=== PATIENT | male | born 1970 | race Two or more races ===

== ENCOUNTER 2020-09-17 06:29 | Inpatient (IN) | payer MEDICAID, OTHER ==
[~2020-09-17] VITALS: Ht 170.2 cm; Wt 86.6 kg
[2020-09-17] MEDS ORDERED: MORPHINE SULFATE 4 MG/ML SYR/VIAL IV ONE ×2 (08:00→13:45)
[2020-09-17] MEDS ORDERED: ONDANSETRON HCL 4 MG/2 ML VIAL IV ONE ×2 (08:00→13:45)
[2020-09-17] MEDS ORDERED: SODIUM CHLORIDE 0.9% 1,000 ML IV ONE ×2 (08:00)
[2020-09-17 08:43] LABS: Basophils # (auto) 0.1 10 ^3/uL (0-0.2); Basophils % (auto) 0.8 % (0.0-2.0); Eosinophils # (auto) 0 10 ^3/uL (0-0.8); Eosinophils % (auto) 0.3 % (0.0-7.0); Hematocrit 44.1 % (41.0-53.0); Hemoglobin 15.2 g/dL (13.5-17.5); Mean Corpuscular Hemoglobin 31.7 pg (28.0-32.0); Mean Corpuscular Hgb Conc. 34.4 g/dL (32.0-36.0); Mean Corpuscular Volume 92.2 fL (80.0-100.0); Monocytes # (auto) 0.5 10 ^3/uL (0-1.3); Monocytes % (auto) 4.1 % (0.0-12.0); Neutrophils # (auto) 11.2 10 ^3/uL (1.6-8.6); Neutrophils % (auto) 86.8 % (37.0-80.0); Nucleated Red Blood Cells % 0.4 %; Platelet Count (auto) 299 10^3/uL (140-450); Red Blood Cells 4.79 10^6/uL (4.5-5.90); Red Cell Distribution Width 12.7 % (11.8-14.3); White Blood Cell 12.9 10^3/uL (4.4-10.8)
[2020-09-17 08:47] LABS: Calcium 8.9 mg/dL (8.5-10.1); Potassium 4.1 mmol/L (3.5-5.1)
[2020-09-17 08:50] LABS: Albumin 3.6 g/dL (3.4-5.0); BUN/Creatinine Ratio 9.6
[2020-09-17 08:52] LABS: Bilirubin, Total 1.4 mg/dL (0.2-1.0); Total Protein 7.9 g/dL (6.4-8.2)
[2020-09-17 09:08] LABS: Urine Bacteria NONE SEEN /hpf (None Seen); Urine Blood Negative /uL (Negative); Urine Mucus FEW (None Seen); Urine Specific Gravity 1.021 (1.001-1.035); Urine WBC 1 /hpf (0 - 3)
[2020-09-17] MEDS ORDERED: PIPERACILLIN-TAZOB 3.375GM 100 ML IV ONE (09:45)
[2020-09-17] MEDS ORDERED: MORPHINE SULF INJ 2 MG/ML SYRINGE 1ML IV PRN (14:00)
[2020-09-17] MEDS ORDERED: NITROGLYCERIN 0.4 MG SL TAB SL PRN (14:00)
[2020-09-17] MEDS ORDERED: ONDANSETRON HCL 4 MG/2 ML VIAL IV PRN (14:15)
[2020-09-17] MEDS: SODIUM CHLORIDE 0.9% 1,000 ML IV SCH ×2 (14:25→18:47)
[2020-09-17] MEDS: metroNIDAZOLE 500MG/100ML 100 ML IV SCH ×2 (14:33→22:00)
[2020-09-17 14:58] LABS: Partial Thromboplastin Time 26.1 sec (23.0-31.2)
[2020-09-17 17:00] VITALS: BP 146/88
[2020-09-17] MEDS: MORPHINE SULF INJ 2 MG/ML SYRINGE 1ML IV PRN (17:28)
[2020-09-17 22:00] VITALS: BP 123/78
[2020-09-18] MEDS: SODIUM CHLORIDE 0.9% 1,000 ML IV SCH ×5 (05:04→20:00)
[2020-09-18 05:17] VITALS: BP 119/72
[2020-09-18] MEDS: metroNIDAZOLE 500MG/100ML 100 ML IV SCH ×3 (05:36→20:52)
[2020-09-18 07:09] LABS: Basophils # (auto) 0.1 10 ^3/uL (0-0.2); Eosinophils # (auto) 0 10 ^3/uL (0-0.8); Eosinophils % (auto) 0.3 % (0.0-7.0); Hemoglobin 14.8 g/dL (13.5-17.5); Lymphocytes # (auto) 1.4 10 ^3/uL (0.4-5.4); Lymphocytes % (auto) 9.8 % (10.0-50.0); Mean Corpuscular Hemoglobin 32.5 pg (28.0-32.0); Mean Corpuscular Hgb Conc. 35.4 g/dL (32.0-36.0); Monocytes # (auto) 0.9 10 ^3/uL (0-1.3); Monocytes % (auto) 6.1 % (0.0-12.0); Neutrophils # (auto) 11.8 10 ^3/uL (1.6-8.6); Neutrophils % (auto) 82.8 % (37.0-80.0); Platelet Count (auto) 327 10^3/uL (140-450); Red Blood Cells 4.56 10^6/uL (4.5-5.90); Red Cell Distribution Width 12.5 % (11.8-14.3); White Blood Cell 14.2 10^3/uL (4.4-10.8)
[2020-09-18 07:56] LABS: Albumin 3.1 g/dL (3.4-5.0); BUN/Creatinine Ratio 9.2; Calcium 8.3 mg/dL (8.5-10.1)
[2020-09-18 07:57] LABS: Bilirubin, Total 1.5 mg/dL (0.2-1.0)
[2020-09-18] MEDS ORDERED: CLINDAMYCIN 600MG IV 50 ML IV ONE ×2 (08:00)
[2020-09-18] MEDS ORDERED: SUCCINYLCHOLINE CHLORIDE 20 MG/ML 10ML VIAL IV ONE (08:08)
[2020-09-18] MEDS ORDERED: LIDOCAINE 1% (LOCAL ANESTH.) PF 5ml SDV ONE (08:08)
[2020-09-18] MEDS ORDERED: MIDAZOLAM HCL 1MG/1ML-2 ML VIAL ONE (08:12)
[2020-09-18] MEDS ORDERED: ETOMIDATE (2MG/ML) 20ML VIAL IV ONE (08:13)
[2020-09-18] MEDS ORDERED: ROCURONIUM 10MG/ML 10ML VIAL IV ONE (08:15)
[2020-09-18] MEDS ORDERED: fentaNYL CITRATE 100 MCG/2 ML VL ONE (08:25)
[2020-09-18] MEDS ORDERED: HYDROmorphone HCL 2 MG/ML VL IV PRN (08:30)
[2020-09-18] MEDS ORDERED: ONDANSETRON HCL 4 MG/2 ML VIAL IV PRN (08:30)
[2020-09-18] MEDS ORDERED: NALOXONE HCL 0.4 MG/ML VIAL IV PRN (08:30)
[2020-09-18] MEDS ORDERED: KETOROLAC TROMETH 30 MG/ML 1ML VIAL ONE (09:01)
[2020-09-18] MEDS ORDERED: GLYCOPYRROLATE 0.2 MG/ML 1ML VIAL ONE (09:11)
[2020-09-18] MEDS ORDERED: NEOSTIGMINE 1 MG/ML INJ (10mg/10ML VIAL) ONE (09:11)
[2020-09-18] MEDS: D5W/SOD CHL 0.45%/KCL 40MEQ 1,000 ML IV SCH ×3 (09:15→19:15)
[2020-09-18] MEDS: HYDROmorphone HCL 2 MG/ML VL IV PRN ×2 (09:40→09:50)
[2020-09-18] MEDS: levoFLOXacin 500MG 100 ML IV SCH (10:38)
[2020-09-18] MEDS: PANTOPRAZOLE 40 MG/10 ML VIAL INJ IV SCH (10:39)
[2020-09-18 13:00] VITALS: BP 110/73
[2020-09-18] MEDS: MORPHINE SULF INJ 2 MG/ML SYRINGE 1ML IV PRN ×3 (13:13→21:34)
[2020-09-18 17:00] VITALS: BP 126/71
[2020-09-18 22:00] VITALS: BP 128/73
[2020-09-19] MEDS: MORPHINE SULF INJ 2 MG/ML SYRINGE 1ML IV PRN ×8 (00:37→23:54)
[2020-09-19] MEDS: SODIUM CHLORIDE 0.9% 1,000 ML IV SCH ×3 (01:00→12:19)
[2020-09-19 04:43] VITALS: BP 124/72
[2020-09-19] MEDS: D5W/SOD CHL 0.45%/KCL 40MEQ 1,000 ML IV SCH (05:05)
[2020-09-19] MEDS: metroNIDAZOLE 500MG/100ML 100 ML IV SCH ×3 (05:05→22:05)
[2020-09-19 06:14] LABS: Basophils # (auto) 0 10 ^3/uL (0-0.2); Basophils % (auto) 0.5 % (0.0-2.0); Eosinophils # (auto) 0 10 ^3/uL (0-0.8); Eosinophils % (auto) 0.3 % (0.0-7.0); Hematocrit 39.6 % (41.0-53.0); Hemoglobin 13.4 g/dL (13.5-17.5); Lymphocytes % (auto) 9.8 % (10.0-50.0); Mean Corpuscular Hemoglobin 31.5 pg (28.0-32.0); Mean Corpuscular Hgb Conc. 33.7 g/dL (32.0-36.0); Mean Corpuscular Volume 93.3 fL (80.0-100.0); Monocytes # (auto) 0.6 10 ^3/uL (0-1.3); Monocytes % (auto) 6.4 % (0.0-12.0); Neutrophils # (auto) 8.1 10 ^3/uL (1.6-8.6); Platelet Count (auto) 324 10^3/uL (140-450); Red Blood Cells 4.24 10^6/uL (4.5-5.90); Red Cell Distribution Width 12.5 % (11.8-14.3); White Blood Cell 9.8 10^3/uL (4.4-10.8)
[2020-09-19 06:38] LABS: Potassium 4.1 mmol/L (3.5-5.1)
[2020-09-19 06:45] LABS: BUN/Creatinine Ratio 10.4; Calcium 8.6 mg/dL (8.5-10.1)
[2020-09-19 08:30] VITALS: BP 130/78
[2020-09-19] MEDS: PANTOPRAZOLE 40 MG/10 ML VIAL INJ IV SCH (09:47)
[2020-09-19] MEDS: levoFLOXacin 500MG 100 ML IV SCH (12:19)
[2020-09-19 12:30] VITALS: BP 137/87
[2020-09-19 17:01] VITALS: BP 155/88
[2020-09-19 22:00] VITALS: BP 153/88
[2020-09-20 05:00] VITALS: BP 140/97
[2020-09-20] MEDS: metroNIDAZOLE 500MG/100ML 100 ML IV SCH (06:03)
[2020-09-20 06:09] LABS: Basophils # (auto) 0 10 ^3/uL (0-0.2); Basophils % (auto) 0.4 % (0.0-2.0); Eosinophils # (auto) 0.1 10 ^3/uL (0-0.8); Eosinophils % (auto) 0.6 % (0.0-7.0); Hematocrit 39.2 % (41.0-53.0); Hemoglobin 13.7 g/dL (13.5-17.5); Lymphocytes # (auto) 0.8 10 ^3/uL (0.4-5.4); Lymphocytes % (auto) 7.2 % (10.0-50.0); Mean Corpuscular Hemoglobin 32.3 pg (28.0-32.0); Mean Corpuscular Volume 92.2 fL (80.0-100.0); Monocytes # (auto) 0.6 10 ^3/uL (0-1.3); Monocytes % (auto) 5.2 % (0.0-12.0); Neutrophils # (auto) 9.5 10 ^3/uL (1.6-8.6); Neutrophils % (auto) 86.6 % (37.0-80.0); Nucleated Red Blood Cells % 0.1 %; Platelet Count (auto) 324 10^3/uL (140-450); Red Blood Cells 4.25 10^6/uL (4.5-5.90); Red Cell Distribution Width 12.4 % (11.8-14.3)
[2020-09-20 06:29] LABS: Albumin 2.7 g/dL (3.4-5.0); Calcium 8.6 mg/dL (8.5-10.1)
[2020-09-20 06:35] LABS: BUN/Creatinine Ratio 9.4; Bilirubin, Total 1.3 mg/dL (0.2-1.0); Total Protein 6.7 g/dL (6.4-8.2)
[2020-09-20 09:00] VITALS: BP 142/78
[2020-09-20 12:16] VITALS: BP 144/89
== END 2020-09-20 17:00 | disposition home or self-care (01) | DRG 234 ==
LOC: ER 06:29 → OBSVTOIN 06:30 → TELE-CENTR 06:30
PROVIDERS: ADMIT Nurse Practitioner Acute Care; ATTEND Internal Medicine
PROC: 0WJG4ZZ Inspection of Peritoneal Cavity, Percutaneous Endoscopic Approach (ICD-10-PCS; 2020-09-18)
PROC: 0DTJ0ZZ Resection of Appendix, Open Approach (ICD-10-PCS; principal; 2020-09-18 08:09)
DX: K35.80 Unspecified acute appendicitis (principal); Z20.828 Contact with and (suspected) exposure to other viral communicable diseases; K44.9 Diaphragmatic hernia without obstruction or gangrene; K57.30 Diverticulosis of large intestine without perforation or abscess without bleeding; Z53.31 Laparoscopic surgical procedure converted to open procedure; Z88.0 Allergy status to penicillin; E87.1 Hypo-osmolality and hyponatremia; E44.0 Moderate protein-calorie malnutrition; E88.09 Other disorders of plasma-protein metabolism, not elsewhere classified
CPT/HCPCS: 36415; 71045; 74176; 80048; 80053; 81001; 82150; 83605; 83690; 84443; 85025; 85610; 85730; 86850; 86900; 86901; 87040; 87426; C9113; G0378; J0330; J1885; J1956; J2250; J2405; J2543; J3490